=== PATIENT | male | born 1975 | race Caucasian/White ===

== ENCOUNTER 2017-07-31 09:06 | Emergency (ER) | payer BC, MEDICAID ==
[2017-07-31 09:52] VITALS: BP 132/71
--- NOTE | 2017-07-31 10:06 | UC ---
Respiratory Complaint HPI - HPI Summary HPI Summary: cough x 1 day + fever, chills, body aches , night sweats and sore throat - History of Current Complaint Chief Complaint: UCRespiratory Stated Complaint: FEVER, ST, COUGH Time Seen by Provider: 07/31/17 09:50 Pain Intensity: 3 - Allergies/Home Medications Allergies/Adverse Reactions: Allergies Allergy/AdvReac Type Severity Reaction Status Date / Time No Known Allergies Allergy Verified 07/31/17 09:43 PMH/Surg Hx/FS Hx/Imm Hx - Surgical History Surgical History: None - Social History Alcohol Use: Occasionally Substance Use Type: None Smoking Status (MU): Light Every Day Tobacco Smoker Type: Cigarettes Amount Used/How Often: 1/2 PPD Have You Smoked in the Last Year: Yes When Did the Patient Quit Smoking/Using Tobacco: 5 YRS AGO Review of Systems Constitutional: Fever, Chills, Fatigue Skin: Negative Eyes: Negative ENT: Sore Throat, Nasal Discharge Respiratory: Cough Cardiovascular: Negative Musculoskeletal: Arthralgia, Myalgia Is Patient Immunocompromised?: No All Other Systems Reviewed And Are Negative: Yes Physical Exam Triage Information Reviewed: Yes Appearance: Well-Appearing, No Pain Distress, Well-Nourished Vital Signs: Initial Vital Signs Temp 98.2 F 07/31/17 09:44 Pulse 93 07/31/17 09:44 Resp 20 07/31/17 09:44 BP 132/71 07/31/17 09:44 Pulse Ox 98 07/31/17 09:44 Vital Signs Reviewed: Yes Eyes: Positive: Conjunctiva Clear ENT: Positive: Normal ENT inspection, Hearing grossly normal, Pharynx normal, Nasal congestion, TMs normal Neck exam: Normal Neck: Positive: Supple, Nontender, No Lymphadenopathy Respiratory: Positive: Chest non-tender, Lungs clear, Normal breath sounds Cardiovascular: Positive: RRR, No Murmur, Pulses Normal Skin Exam: Normal UC Diagnostic Evaluation - Laboratory O2 Sat by Pulse Oximetry: 98 Respiratory Course/Dx - Differential Dx/Diagnosis Provider Diagnoses: influenza Discharge - Discharge Plan Condition: Stable Disposition: HOME Prescriptions: Oseltamivir CAP* [Tamiflu CAP*] 75 mg PO BID #10 cap Patient Education Materials: Influenza (DC) Referrals: No Primary Care Phys,NOPCP [Primary Care Provider] - If Needed
== END 2017-07-31 10:30 | disposition home or self-care (01) ==
LOC: UCCORT 09:06
DX: J11.1 Influenza due to unidentified influenza virus with other respiratory manifestations (principal)
CPT/HCPCS: 87502; 99211; G0463

== ENCOUNTER 2017-08-03 15:22 | Emergency (ER) | payer MEDICAID ==
[2017-08-03 18:40] VITALS: BP 97/66
--- NOTE | 2017-08-03 19:33 | UC ---
Respiratory Complaint HPI - HPI Summary HPI Summary: PT SWABBED POS FOR FLU B ON 07/31/17 (SEEN HERE). TX WITH TAMIFLU. LAST DAY TOMORROW. STATES HIS SX HAVE WORSENED. WORSE COUGH AND FEVER 103.5 LAST NIGHT. STILL HAS MILD PORTER, NAUSEA AND BODY ACHES. NO SOB. - History of Current Complaint Chief Complaint: UCRespiratory Stated Complaint: FEVER (101), COUGH, CONGESTION Time Seen by Provider: 08/03/17 19:19 Hx Obtained From: Patient, Family/Sodder - GIRLFRIEND Onset/Duration: Gradual Onset, Lasting Days, Still Present Timing: Constant Severity Initially: Moderate Severity Currently: Moderate Pain Intensity: 0 Pain Scale Used: 0-10 Numeric Character: Cough: Nonproductive Aggravating Factors: Nothing Alleviating Factors: Nothing Associated Signs And Symptoms: Positive: Fever, Chills, Nasal Congestion. Negative: Dyspnea, Pleuritic Chest Pain, Wheezing - Allergies/Home Medications Allergies/Adverse Reactions: Allergies Allergy/AdvReac Type Severity Reaction Status Date / Time No Known Allergies Allergy Verified 08/03/17 18:36 PMH/Surg Hx/FS Hx/Imm Hx Previously Healthy: Yes - Surgical History Surgical History: None - Family History Known Family History: Negative: Hypertension - Social History Alcohol Use: Occasionally Substance Use Type: None Smoking Status (MU): Light Every Day Tobacco Smoker Type: Cigarettes Amount Used/How Often: 1/2 PPD Have You Smoked in the Last Year: Yes When Did the Patient Quit Smoking/Using Tobacco: 5 YRS AGO Review of Systems Constitutional: Fever, Chills, Fatigue ENT: Nasal Discharge Respiratory: Cough Cardiovascular: Negative Gastrointestinal: Nausea Musculoskeletal: Myalgia Neurological: Headache All Other Systems Reviewed And Are Negative: Yes Physical Exam Triage Information Reviewed: Yes Appearance: No Pain Distress, Well-Nourished, Ill-Appearing - MILD Vital Signs: Initial Vital Signs Temp 97.8 F 08/03/17 18:36 Pulse 89 08/03/17 18:36 Resp 16 08/03/17 18:36 BP 97/66 08/03/17 18:36 Pulse Ox 100 08/03/17 18:36 Vital Signs Reviewed: Yes Eyes: Positive: Conjunctiva Clear ENT: Positive: Hearing grossly normal, Pharynx normal, TMs normal Neck: Positive: Supple, Nontender, No Lymphadenopathy Respiratory Exam: Normal Cardiovascular: Positive: Tachycardia Abdomen Description: Positive: Soft Musculoskeletal: Positive: No Edema Neurological: Positive: Alert Psychological: Positive: Normal Response To Family, Age Appropriate Behavior Skin: Negative: rashes UC Diagnostic Evaluation - Laboratory O2 Sat by Pulse Oximetry: 100 - Radiology Xray Interpretation: Positive (See Comments) - THERE IS A NODULAR INFILTRATE IN THE RIGHT LOWER LOBE MOST CONSISTENT WITH PNEUMONIA Radiology Interpretation Completed By: Radiologist Respiratory Course/Dx - Differential Dx/Diagnosis Provider Diagnoses: RLL PNEUMONIA Discharge - Discharge Plan Condition: Stable Disposition: HOME Prescriptions: Amoxicillin/Clavulanate TAB* [Augmentin TAB 875*] 875 mg PO BID #13 tab Azithromycin 500 mg PO DAILY #4 tab Patient Education Materials: Pneumonia (ED) Forms: *Work Release Referrals: No Primary Care Phys,NOPCP [Primary Care Provider] - Additional Instructions: THERE IS AN INFILTRATE IN THE LOWER LOBE OF YOUR RIGHT LUNG CONSISTENT WITH PNEUMONIA. AUGMENTIN FOR 7 DAYS AND AZITH FOR 5 DAYS. GO TO THE ER WITHOUT FAIL IF AFTER 48 HOURS YOU ARE NOT IMPROVING. REPEAT CHEST XRAY 4-6 WEEKS AFTER RESOLUTION OF SYMPTOMS TO ENSURE YOUR XRAY HAS CLEARED. IF THE INFILTRATE IS PERSISTENT YOU MAY NEED A CT SCAN TO FURTHER CHARACTERIZE THE LESION. CALL THE NUMBER BELOW FOR ASSISTANCE IN ESTABLISHING WITH A PCP An additional resource available to assist in finding the appropriate physician for your health care needs is [facility] ([facility]). You may contact them by calling [phone]. LIST OF LOCAL PCPs PROVIDED. COMPLETE TAMIFLU PRESCRIBED.
--- NOTE | 2017-08-03 20:20 | RAD ---
INDICATION: Worsening cough and fever. COMPARISON: Comparison is made with a prior chest x-ray study from December 05, 2006. TECHNIQUE: Dual-energy PA and lateral views of the chest were obtained. FINDINGS: The heart is within normal limits in size. Mediastinal and hilar contours appear within normal limits. There is a nodular infiltrate present in the right lower lobe. The left lung appears clear. No pleural effusion is seen. IMPRESSION: THERE IS A NODULAR INFILTRATE IN THE RIGHT LOWER LOBE MOST CONSISTENT WITH PNEUMONIA. RECOMMEND FOLLOW-UP CHEST X-RAYS TO RESOLUTION TO EXCLUDE A NEOPLASTIC PROCESS. IF THIS DOES NOT RESOLVE THEN A CT OF THE CHEST WOULD BE INDICATED FOR FURTHER EVALUATION.
[2017-08-03] MEDS ORDERED: Amoxicillin/Clavulanate TAB* 875 MG PO ONE (20:36)
[2017-08-03] MEDS ORDERED: Azithromycin TAB* 250 MG PO ONE (20:36)
== END 2017-08-03 20:51 | disposition home or self-care (01) ==
LOC: UCCORT 15:22
DX: J18.9 Pneumonia, unspecified organism (principal); F17.210 Nicotine dependence, cigarettes, uncomplicated
CPT/HCPCS: 71046; 99212; A9270-GY; G0463